=== PATIENT | male | born 1975 | race Caucasian/White ===

== ENCOUNTER 2016-06-20 11:42 | Emergency (ER) | payer OTHER ==
[~2016-06-20] VITALS: Ht 167.6 cm; Wt 90.0 kg
[2016-06-20 13:40] LABS: HEMATOCRIT 44.8 % (38.0-50.0); MCH 27.9 PG (29.0-34.0); MCHC 32.6 G/DL (30.0-36.0); MCV 85.7 FL (86-99); MEAN PLAT.VOLUME 9.4 uM^3 (9.0-12.4); PLATELET COUNT 219 K/uL (156-360); RBC DIS.WIDTH-CV 12.9 % (11.8-14.6); RBC DIS.WIDTH-SD 39.8 % (39-53); RED BLOOD COUNT 5.23 M/uL (4.00-5.50); WHITE BLOOD COUNT 5.8 K/uL (4.1-10.2)
[2016-06-20 13:51] LABS: CHLORIDE 112 mEq/L (99-109); POTASSIUM 4.8 mEq/L (3.7-5.4); SODIUM 142 mEq/L (136-147)
[2016-06-20 13:53] LABS: GLUCOSE 109 mg/dL (70-99)
[2016-06-20 13:54] LABS: ANION GAP 7 MEQ/L (2-14); INTER. NORMALIZED RATIO 1.1; PROTHROMBIN TIME 11.2 (9.2-11.2); PTT 29.5 (25-32)
[2016-06-20 13:55] LABS: TOTAL BILIRUBIN 0.4 mg/dL (0.0-1.0)
[2016-06-20 13:57] LABS: ALKALINE PHOSPHATASE 63 IU/L (3-129); GFR ESTIMATE (CALCULATED) > 59 mL/min/
[2016-06-20 13:58] LABS: UREA NITROGEN (BUN) 18 mg/dL (9-23)
[2016-06-20] MEDS ORDERED: NASACORT10.8 ML BOTH NARES (14:16)
[2016-06-20] MEDS ORDERED: GABAPENTIN300 MG PO (14:17)
[2016-06-20] MEDS ORDERED: FISH OIL 1,0001 EAC7 PO (14:18)
[2016-06-20] MEDS ORDERED: AMITRIPTYLINE H25 MG PO (14:19)
[2016-06-20] MEDS ORDERED: PROMETHAZINE HC25 M1 PO (14:20)
[2016-06-20] MEDS ORDERED: EXTRA STRENGTH500 M1 PO (14:21)
[2016-06-20 15:42] VITALS: BP 122/76
== END 2016-06-20 15:53 ==
LOC: EME 11:42
PROVIDERS: Emergency Medicine
DX: S20.20XA Contusion of thorax, unspecified, initial encounter (principal); K92.0 Hematemesis; W01.190A Fall on same level from slipping, tripping and stumbling with subsequent striking against furniture, initial encounter
CPT/HCPCS: 71010; 71260; 74177; 80053; 85027; 85610; 85730; 86850; 86900; 86901; 99281; 99285

== ENCOUNTER 2016-07-08 19:23 | Emergency (ER) | payer OTHER ==
[~2016-07-08] VITALS: Ht 167.6 cm; Wt 90.4 kg
[~2016-07-08 19:23] MED LIST: AMITRIPTYLINE H25 MG PO; EXTRA STRENGTH500 M1 PO; FISH OIL 1,0001 EAC7 PO; GABAPENTIN300 MG PO; NASACORT10.8 ML BOTH NARES; PROMETHAZINE HC25 M1 PO
[2016-07-08 19:53] LABS: HEMATOCRIT 43.4 % (38.0-50.0); MCHC 33.4 G/DL (30.0-36.0); MCV 83.9 FL (86-99); MEAN PLAT.VOLUME 9.3 uM^3 (9.0-12.4); PLATELET COUNT 192 K/uL (156-360); RBC DIS.WIDTH-CV 12.4 % (11.8-14.6); RBC DIS.WIDTH-SD 37.6 % (39-53); RED BLOOD COUNT 5.17 M/uL (4.00-5.50); WHITE BLOOD COUNT 4.6 K/uL (4.1-10.2)
[2016-07-08 20:03] LABS: CHLORIDE 105 mEq/L (99-109); POTASSIUM 4.5 mEq/L (3.7-5.4); SODIUM 139 mEq/L (136-147)
[2016-07-08 20:06] LABS: GLUCOSE 107 mg/dL (70-99)
[2016-07-08 20:07] LABS: ANION GAP 11 MEQ/L (2-14)
[2016-07-08 20:08] LABS: TOTAL BILIRUBIN 0.4 mg/dL (0.0-1.0)
[2016-07-08 20:09] LABS: ALKALINE PHOSPHATASE 62 IU/L (3-129); GFR ESTIMATE (CALCULATED) > 59 mL/min/
[2016-07-08 20:10] LABS: UREA NITROGEN (BUN) 12 mg/dL (9-23)
[2016-07-08 22:22] LABS: ADD MIUA? NO; BILIRUBIN NEGATIVE; BLOOD NEGATIVE; COLOR STRAW ((YELLOW)); GLUCOSE (STRIP) NEGATIVE; KETONES NEGATIVE; LEUKOCYTES NEGATIVE; NITRITE NEGATIVE; PROTEIN (STRIP) NEGATIVE; SPECIFIC GRAVITY 1.011 (1.000-1.030); UCUL ADDED? NO; UROBILINOGEN 0.2 MG/DL (0.2-1.0)
[2016-07-08 23:57] LABS: MCH 27.7 PG (29.0-34.0); MEAN PLAT.VOLUME 9.4 uM^3 (9.0-12.4); PLATELET COUNT 208 K/uL (156-360); RBC DIS.WIDTH-CV 12.4 % (11.8-14.6); RBC DIS.WIDTH-SD 37.8 % (39-53); RED BLOOD COUNT 5.12 M/uL (4.00-5.50); WHITE BLOOD COUNT 4.7 K/uL (4.1-10.2)
[2016-07-09] MEDS ORDERED: ZOFRAN4 MG PO (00:21)
[2016-07-09] MEDS ORDERED: PROTONIX40 MG PO (00:21)
[2016-07-09 00:22] VITALS: BP 135/92
== END 2016-07-09 00:26 ==
LOC: EME 19:23
PROVIDERS: Emergency Medicine
DX: R10.9 Unspecified abdominal pain (principal); K92.2 Gastrointestinal hemorrhage, unspecified; K92.0 Hematemesis
CPT/HCPCS: 74177; 80053; 81003; 83690; 85027; 86900; 86901; 99281; 99284; C9113; J2405; J7030